=== PATIENT | male | born 1960 | race Caucasian/White ===

== ENCOUNTER 2019-12-23 09:51 | Emergency (ER) | payer SELFPAY ==
[~2019-12-23] VITALS: Ht 170.1 cm; Wt 88.5 kg
[~2019-12-23 09:51] MED LIST: AUGMENTIN 875 M1 TAB PO; DAYPRO600 M1 PO; LIDEX0.05% T; PREDNICOT20 MG PO
[2019-12-23] MEDS ORDERED: NAPROSYN500 MG PO (12:07)
== END 2019-12-23 12:17 | disposition home or self-care (01) ==
LOC: ED 09:51
DX: M25.462 Effusion, left knee (principal)

== ENCOUNTER → 2021-05-25 | Outpatient (CLI) | payer SELFPAY ==
[~2021-05-25] MED LIST changes: +NAPROSYN500 MG PO
[2021-05-25 14:45] LABS: HEMATOCRIT 46.9 % (42.0-52.0); MEAN CELL VOLUME 97.7 fl (80.0-94.0); MEAN CORPUSCULAR HGB 33.5 pg (27.0-31.0); MEAN CORPUSCULAR HGB CONC 34.3 g/dl (33.0-37.0); MEAN PLATELET VOLUME 10.1 fl (9.6-12.3); PLATELET COUNT AUTOMATED 328 10*3/uL (130-400); RED CELL DISTRI WIDTH 13.2 % (0-14.5); WHITE BLOOD COUNT 10.4 10*3/uL (4.8-10.8)
[2021-05-25 14:46] LABS: MANUAL DIFF REFLEX YES
[2021-05-25 15:09] LABS: BURR CELLS FEW; TOTAL CELLS COUNTED 100 #CELLS
[2021-05-25 15:10] LABS: TARGET CELLS FEW
[2021-05-25 15:11] LABS: PLATELET SUFFICIENCY NORMAL (NORMAL)
[2021-05-25 16:09] LABS: BF LYMPHOCYTES 4 %; BF MACROPHAGES 13 %; BF NEUTROPHILS 83 %
[2021-05-25 16:45] LABS: BODY FLUID WBC 9970 /uL
[2021-05-26 14:07] LABS: ACID FAST SPEC PROCESSING Direct Inoculation (.)
== END | disposition home or self-care (01) ==
LOC: LAB 14:27
PROVIDERS: ATTEND Orthopaedic Surgery
DX: M25.462 Effusion, left knee (principal)